=== PATIENT | male | born 2000 | race Hispanic/Latino ===

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

== ENCOUNTER 2018-01-31 15:40 | Emergency (ER) | payer OTHER ==
[~2018-01-31] VITALS: Ht 172.7 cm; Wt 96.4 kg
[~2018-01-31 15:40] MED LIST changes: +ATARAX,VISTARIL25 MG PO; +PEN-VEE K,VEET500 MG PO
[2018-01-31] MEDS ORDERED: MOTRIN800 MG PO (17:43)
[2018-01-31 17:51] VITALS: BP 130/76
== END 2018-01-31 18:05 | disposition home or self-care (01) ==
LOC: EME 15:40
DX: S93.401A Sprain of unspecified ligament of right ankle, initial encounter (principal); S86.811A Strain of other muscle(s) and tendon(s) at lower leg level, right leg, initial encounter; X50.1XXA Overexertion from prolonged static or awkward postures, initial encounter; Y93.67 Activity, basketball; F17.200 Nicotine dependence, unspecified, uncomplicated
CPT/HCPCS: 73564; 73610; 99281; 99284; J1885